=== PATIENT | male | born 1950 ===

== ENCOUNTER 2018-01-01 12:30 | Day surgery (SDC) | payer OTHER ==
[~2018-01-01] VITALS: Ht 175.3 cm; Wt 87.1 kg
[~2018-01-01 12:30] MED LIST: ASPI325 PO; CHOL10002 PO; LISI20 PO; MULTI VITAMIN1 EACH PO; SIMV10 PO
== END 2018-01-01 15:00 | disposition home or self-care (01) ==
LOC: ORSCSDS 12:30
PROVIDERS: Surgery
PROC: 0DJD8ZZ Inspection of Lower Intestinal Tract, Via Natural or Artificial Opening Endoscopic (ICD-10-PCS; principal; 2018-01-01 14:00)
DX: Z12.11 Encounter for screening for malignant neoplasm of colon (principal); I10 Essential (primary) hypertension; Z79.899 Other long term (current) drug therapy; Z79.82 Long term (current) use of aspirin

== ENCOUNTER → 2019-12-11 | Outpatient (CLI) | payer OTHER | END | disposition home or self-care (01) | LOC: PLD 10:47 → LAB SHORT 10:47 | DX: C44.329 Squamous cell carcinoma of skin of other parts of face (principal) | CPT/HCPCS: 88305 ==